=== PATIENT | male | born 1965 | race American Indian/Alaskan Native ===

== ENCOUNTER 2018-11-28 11:42 | Observation (INO) | payer OTHER ==
--- NOTE | 2018-11-28 11:52 | Emergency Department Report ---
Blank Doc - Documentation Documentation: This is a 53-year-old male that presents with dark colored stool with low h/h. Was sent by PCP to r/o GI bleed. This initial assessment/diagnostic orders/clinical plan/treatment(s) is/are subject to change based on patient's health status, clinical progression and re-assessment by fellow clinical providers in the ED. Further treatment and workup at subsequent clinical providers discretion. Patient/guardians urged not to elope from the ED as their condition may be serious if not clinically assessed and managed. Initial orders include: 1- Patient sent to MAIN ED for further evaluation and treatment 2- labs 3- UA
[2018-11-28 12:42] LABS: Basophils # (Auto) 0.1 K/mm3 (0.0-0.1); Basophils % (Auto) 0.8 % (0.0-1.8); Eosinophils # (Auto) 0.1 K/mm3 (0.0-0.4); Eosinophils % (Auto) 2.1 % (0.0-4.3); Hematocrit 25.3 % (35.5-45.6); Hemoglobin 8.3 gm/dl (11.8-15.2); Lymphocytes # (Auto) 1.9 K/mm3 (1.2-5.4); Mean Corpuscular HGB Conc 33 % (32-34); Mean Corpuscular Volume 81 fl (84-94); Monocytes # (Auto) 0.5 K/mm3 (0.0-0.8); Monocytes % (Auto) 7.7 % (0.0-7.3); Platelet Count 289 K/mm3 (140-440); Red Blood Count 3.13 M/mm3 (3.65-5.03); Red Cell Distribution Width 14.4 % (13.2-15.2)
[2018-11-28 13:06] LABS: Alanine Aminotransferase 14 units/L (7-56); Albumin 3.9 g/dL (3.9-5); BUN/Creatinine Ratio 10; Blood Urea Nitrogen 9 mg/dL (9-20); Calcium 8.6 mg/dL (8.4-10.2); Hemolysis Index 5
[2018-11-28] MEDS ORDERED: NACL 0.9% 1000 ML 1,000 ML IV ONE ×2 (14:22→18:00)
--- NOTE | 2018-11-28 14:22 | Emergency Department Report ---
HPI - General Chief Complaint: GI Bleed Time Seen by Provider: 11/28/18 11:51 - HPI HPI: Patient is a 53-year-old male comes to the ER today from his primary care's office with concern for a dropping hemoglobin. According to the patient is hemoglobin last week was 14 today is 8.3. He brought with him paperwork from the primary care's office documenting 8.3 from today. He reports that over the past week his stools have been dark black in appearance. He states that he also noticed that he had some blood clots that were maroon in color. Patient denies hemorrhoids. He states that he has never had bleeding like this in the past. Patient denies any pain in relation to food. He states that he does feel hungry but has not been eating as much as normal. His reports that he just lays around and appears tired. Patient denies any chest pain or shortness of breath. He denies any nausea or vomiting. He denies any fever. He has never had a colonoscopy. Patient denies taking NSAIDs on a routine basis. Past medical history none Past surgical history none home medications none Patient denies alcohol, cigarettes or drug use. 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 Patient's mother is alive with diabetes mellitus: Father is alive and well ED Past Medical Hx - Past Medical History Previous Medical History?: No - Surgical History Past Surgical History?: No - Family History Family history: no significant - Social History Smoking Status: Never Smoker Substance Use Type: None ED Review of Systems ROS: Stated complaint: BLOOD IN STOOL/ABNORMAL BLOOD Other details as noted in HPI Comment: All other systems reviewed and negative Constitutional: malaise Cardiovascular: denies: chest pain Endocrine: denies: excessive sweating Gastrointestinal: as per HPI, melena, hematochezia. denies: abdominal pain, nausea, vomiting, diarrhea, constipation, hematemesis Genitourinary: denies: urgency Musculoskeletal: denies: back pain Skin: denies: lesions Neurological: as per HPI, headache, weakness Psychiatric: denies: anxiety Hematological/Lymphatic: denies: easy bleeding Physical Exam - Physical Exam Vital Signs: Vital Signs 11/28/18 11:51 Temperature 97.9 F Pulse Rate 98 H Respiratory 16 Rate Blood Pressure 142/88 O2 Sat by Pulse 99 Oximetry Physical Exam: WDWN patient in NAD. VS per RN flow sheet. ORTHOSTATICS NOTED. Alert and oriented to person, place and time. NO FOCAL NEURO DEFICIT. S1-S2. No S3 or S4. No systolic or diastolic murmur. No JVD. No pitting edema. Lungs clear to auscultation bilaterally anteriorly and posteriorly. Abdomen soft nontender bowel sounds X 4. NO DYSURIA. NO CVA TENDERNESS Moves all extremities well. Mood and affect appropriate. ED Course Vital Signs 11/28/18 11:51 Temperature 97.9 F Pulse Rate 98 H Respiratory 16 Rate Blood Pressure 142/88 O2 Sat by Pulse 99 Oximetry - Reevaluation(s) Reevaluation #1: 11/28/18 17:56 Dr. Tate has come to see the patient and on exam he shared with Dr. Tejada that he hasn't diet controlled diabetic. And he concurred to Dr. Denny that he takes NSAIDs for his chronic shoulder pain. ED Medical Decision Making - Lab Data Result diagrams: 11/28/18 12:10 11/28/18 12:10 - EKG Data EKG shows normal: sinus rhythm Rate: normal - EKG Data When compared to previous EKG there are: no significant change Interpretation: no acute changes - Medical Decision Making Labs 11/28/18 11/28/18 11/28/18 12:10 12:10 12:10 WBC 6.7 RBC 3.13 L Hgb 8.3 L Hct 25.3 L MCV 81 L MCH 27 L MCHC 33 RDW 14.4 Plt Count 289 Lymph % (Auto) 28.0 [place] % (Auto) 7.7 H Eos % (Auto) 2.1 Baso % (Auto) 0.8 Lymph # 1.9 [place] # 0.5 Eos # 0.1 Baso # 0.1 Seg Neutrophils % 61.4 Seg Neutrophils # 4.1 Sodium 135 L Potassium 4.3 Chloride 97.4 L Carbon Dioxide 23 Anion Gap 19 BUN 9 Creatinine 0.9 Estimated GFR > 60 BUN/Creatinine Ratio 10 Glucose 341 H Calcium 8.6 Total Bilirubin 0.20 AST 12 ALT 14 Alkaline Phosphatase 84 Troponin T Total Protein 7.0 Albumin 3.9 Albumin/Globulin Ratio 1.3 Lipase 59 Blood Type B POSITIVE Antibody Screen Negative 11/28/18 14:47 WBC RBC Hgb Hct MCV MCH MCHC RDW Plt Count Lymph % (Auto) [place] % (Auto) Eos % (Auto) Baso % (Auto) Lymph # [place] # Eos # Baso # Seg Neutrophils % Seg Neutrophils # Sodium Potassium Chloride Carbon Dioxide Anion Gap BUN Creatinine Estimated GFR BUN/Creatinine Ratio Glucose Calcium Total Bilirubin AST ALT Alkaline Phosphatase Troponin T < 0.010 Total Protein Albumin Albumin/Globulin Ratio Lipase Blood Type Antibody Screen Vital Signs 11/28/18 11:51 Temperature 97.9 F Pulse Rate 98 H Respiratory 16 Rate Blood Pressure 142/88 O2 Sat by Pulse 99 Oximetry Rectal exam reveals no hemorrhoids. Stool was positive for occult blood using Hemoccult testing. I've discussed this case and labs with Dr. toro of it sivan Strong. He recommends due to the abrupt hemoglobin drop a 23 hour observation and EGD in the a.m. Dr. Tejada has been notified and has been to bedside. Patient and up and updated on plan of care. - Differential Diagnosis UGI/LGI BLEEDING Critical care attestation.: If time is entered above; I have spent that time in minutes in the direct care of this critically ill patient, excluding procedure time. ED Disposition Clinical Impression: Anemia, GIB (gastrointestinal bleeding) Disposition: DC-09 OP ADMIT IP TO THIS HOSP Is pt being admited?: Yes Does the pt Need Aspirin: No Condition: Stable Time of Disposition: 17:59
[2018-11-28] MEDS ORDERED: PROTONIX IV ONE (14:23)
[2018-11-28] MEDS ORDERED: SODIUM CHLORIDE FLUSH SYRINGE 10 ML IV PRN (18:31)
[2018-11-28] MEDS ORDERED: TYLENOL PO PRN (18:31)
[2018-11-28] MEDS ORDERED: ZOFRAN IV PRN (18:31)
[2018-11-28] MEDS ORDERED: DILAUDID IV PRN (18:31)
[2018-11-28] MEDS ORDERED: NACL 0.9% 1000 ML 1,000 ML ONE (18:49)
--- NOTE | 2018-11-28 18:50 | History and Physical Report ---
History of Present Illness Date of examination: 11/28/18 Date of admission: 11/28/18 17:44 Chief complaint: Hemoglobin dropped from 14 mg to 8 g over 1 week Black stools for 1 week History of present illness: 53-year-old -[place] male comes in for feeling weak. He brings his lab work which shows that his hemoglobin has dropped from 14 1 week ago to 8.3 tod ay. Patient was referred by his primary care physician. Patient has been having dark stools with some blood clots for last 1 week. Patient has been taking ibuprofen 800 mg once a day for his right shoulder pain which is severe. Has been taking ibuprofen for the last 3-4 months. Takes [id number] ibuprofen=--- 4 tablets of 200 mg ibuprofen. Feels lightheaded when he stands. Does not take any BC powders or Goody powders. Past Medical History Diet-controlled diabetes Right shoulder pain Surgical History Past Surgical History?: No Family History Family history: no significant Social History Smoking Status: Never Smoker Substance Use Type: None Review of Systems ROS: Stated complaint: BLOOD IN STOOL/ABNORMAL BLOOD Other details as noted in HPI Comment: All other systems reviewed and negative Constitutional: malaise Cardiovascular: denies: chest pain Endocrine: denies: excessive sweating Gastrointestinal: as per HPI, melena, hematochezia. denies: abdominal pain, nausea, vomiting, diarrhea, constipation, hematemesis Genitourinary: denies: urgency Musculoskeletal: denies: back pain--patient has a right shoulder pain on a recurrent basis Skin: denies: lesions Neurological: as per HPI, headache, weakness Psychiatric: denies: anxiety Hematological/Lymphatic: denies: easy bleeding 14 point review of systems done and otherwise negative Medications and Allergies Allergies Allergy/AdvReac Type Severity Reaction Status Date / Time No Known Allergies Allergy Verified 11/28/18 11:53 Active Meds: Active Medications Acetaminophen (Tylenol) 650 mg PO Q4H PRN PRN Reason: Pain MILD(1-3)/Fever >100.5/DAMON Hydromorphone HCl (Dilaudid) 0.5 mg IV Q3H PRN PRN Reason: Pain , Severe (7-10) Sodium Chloride (Nacl 0.9% 1000 Ml) 1,000 mls @ 125 mls/hr IV BOLUS ONE Stop: 11/29/18 01:59 Sodium Chloride (Nacl 0.9% 1000 Ml) 1,000 mls @ 75 mls/hr IV DIRECT EDUARD Pantoprazole Sodium 80 mg/ (Sodium Chloride) 100 mls @ 10 mls/hr IV DIRECT EDUARD Insulin Human Lispro (Humalog) 0 unit SUB-Q Q6HR EDUARD; Protocol Ondansetron HCl (Zofran) 4 mg IV Q8H PRN PRN Reason: Nausea And Vomiting Sodium Chloride (Sodium Chloride Flush Syringe 10 Ml) 10 ml IV BID EDUARD Sodium Chloride (Sodium Chloride Flush Syringe 10 Ml) 10 ml IV PRN PRN PRN Reason: LINE FLUSH Exam - Constitutional Vitals: Temp Pulse Resp BP Pulse Ox 97.9 F 98 H 16 142/88 99 11/28/18 11:51 11/28/18 11:51 11/28/18 18:02 11/28/18 11:51 11/28/18 11:51 Results - Labs CBC & Chem 7: 11/28/18 12:10 11/28/18 12:10 Labs: Laboratory Last Values WBC 6.7 K/mm3 (4.5-11.0) 11/28/18 12:10 RBC 3.13 M/mm3 (3.65-5.03) L 11/28/18 12:10 Hgb 8.3 gm/dl (11.8-15.2) L 11/28/18 12:10 Hct 25.3 % (35.5-45.6) L 11/28/18 12:10 MCV 81 fl (84-94) L 11/28/18 12:10 MCH 27 pg (28-32) L 11/28/18 12:10 MCHC 33 % (32-34) 11/28/18 12:10 RDW 14.4 % (13.2-15.2) 11/28/18 12:10 Plt Count 289 K/mm3 (140-440) 11/28/18 12:10 Lymph % (Auto) 28.0 % (13.4-35.0) 11/28/18 12:10 [place] % (Auto) 7.7 % (0.0-7.3) H 11/28/18 12:10 Eos % (Auto) 2.1 % (0.0-4.3) 11/28/18 12:10 Baso % (Auto) 0.8 % (0.0-1.8) 11/28/18 12:10 Lymph # 1.9 K/mm3 (1.2-5.4) 11/28/18 12:10 [place] # 0.5 K/mm3 (0.0-0.8) 11/28/18 12:10 Eos # 0.1 K/mm3 (0.0-0.4) 11/28/18 12:10 Baso # 0.1 K/mm3 (0.0-0.1) 11/28/18 12:10 Seg Neutrophils % 61.4 % (40.0-70.0) 11/28/18 12:10 Seg Neutrophils # 4.1 K/mm3 (1.8-7.7) 11/28/18 12:10 Sodium 135 mmol/L (137-145) L 11/28/18 12:10 Potassium 4.3 mmol/L (3.6-5.0) 11/28/18 12:10 Chloride 97.4 mmol/L (98-107) L 11/28/18 12:10 Carbon Dioxide 23 mmol/L (22-30) 11/28/18 12:10 19 mmol/L 11/28/18 12:10 BUN 9 mg/dL (9-20) 11/28/18 12:10 0.9 mg/dL (0.8-1.5) 11/28/18 12:10 Estimated GFR > 60 ml/min 11/28/18 12:10 10 % 11/28/18 12:10 Glucose 341 mg/dL (75-100) H 11/28/18 12:10 Calcium 8.6 mg/dL (8.4-10.2) 11/28/18 12:10 0.20 mg/dL (0.1-1.2) 11/28/18 12:10 AST 12 units/L (5-40) 11/28/18 12:10 ALT 14 units/L (7-56) 11/28/18 12:10 84 units/L (35-129) 11/28/18 12:10 < 0.010 ng/mL (0.00-0.029) 11/28/18 14:47 7.0 g/dL (6.3-8.2) 11/28/18 12:10 3.9 g/dL (3.9-5) 11/28/18 12:10 1.3 % 11/28/18 12:10 59 units/L (13-60) 11/28/18 12:10 Blood Type B POSITIVE 11/28/18 12:10 Antibody Screen Negative 11/28/18 12:10 Short CBC 11/28/18 Range/Units 12:10 WBC 6.7 (4.5-11.0) K/mm3 Hgb 8.3 L (11.8-15.2) gm/dl Hct 25.3 L (35.5-45.6) % Plt Count 289 (140-440) K/mm3 BMP 11/28/18 12:10 Sodium 135 L Potassium 4.3 Chloride 97.4 L Carbon Dioxide 23 BUN 9 Creatinine 0.9 Glucose 341 H Calcium 8.6 Cardiac Enzymes 11/28/18 Range/Units 14:47 Troponin T < 0.010 (0.00-0.029) ng/mL Liver Function 11/28/18 Range/Units 12:10 Total Bilirubin 0.20 (0.1-1.2) mg/dL AST 12 (5-40) units/L ALT 14 (7-56) units/L Alkaline Phosphatase 84 (35-129) units/L Albumin 3.9 (3.9-5) g/dL - Imaging and Cardiology EKG: report reviewed (EKG normal sinus rhythm heart rate of 86/m Night with scarring.) Assessment and Plan Advance Directives: Yes (full code) VTE prophylaxis?: Chemical Plan of care discussed with patient/family: Yes - Patient Problems (1) GIB (gastrointestinal bleeding) Current Visit: Yes Status: Acute Qualifiers: GI bleed type/associated pathology: unspecified gastrointestinal hemorrhage type Qualified Code(s): K92.2 - Gastrointestinal hemorrhage, unspecified Plan to address problem: Probably secondary from ibuprofen Patient has been taking ibuprofen for the last 4-5 months Pantoprazole IV drip started Hemoglobin and hematocrit every 8 hours Transfuse as necessary GI consult requested Keep the patient nothing by mouth Possible endoscopy tomorrow (2) Symptomatic anemia Current Visit: Yes Status: Acute (3) Type 2 diabetes mellitus Current Visit: Yes Status: Chronic Qualifiers: Diabetes mellitus custodial insulin use: without medical terminologist use Plan to address problem: Patient says he has diet-controlled diabetes Not taking any medications We'll check his hemoglobin A1c and Accu-Cheks before meals and at bedtime Moderate dose sliding scale coverage Initiate hypoglycemics if necessary (4) Right shoulder pain Current Visit: Yes Status: Chronic Qualifiers: Chronicity: chronic Qualified Code(s): M25.511 - Pain in right shoulder; G8 9.29 - Other chronic pain Plan to address problem: We will get x-rays of the right shoulder Refer to Dr. Perez as outpatient (5) DVT prophylaxis Current Visit: Yes Status: Acute Plan to address problem: On SCDs and on Protonix drip for GI prophylaxis
[2018-11-28] MEDS ORDERED: HumaLOG SUB-Q ONE (19:22)
[2018-11-28] MEDS: HumaLOG SUB-Q SCH ×2 (19:24→23:57)
--- NOTE | 2018-11-28 19:32 | Gastroenterology Consultation ---
History of Present Illness - Reason for Consult Consult date: 11/28/18 Melena Requesting physician: JIGNESH NOLEN - History of Present Illness The patient is a 53 yo male admitted with dark stools for the last 7 days (intermittent, with occasional maroon clot). His PCP is CHANA, and his hgb was 14 last week, but was 8 this week in the office, and he was sent to the ER. He has no abdominal pain, N/V, weight loss, chest pain or SOB. He does have mild pre-syncope. In the ER tonight, there was brown stool on exam, but he had clots earlier today by report. He has no hx of GI bleeding, and has had no prior EGD or colonoscopy. He has no family hx of bleeding disorders or GI luminal cancer. He does take ibuprofen on a daily basis (tendonitis and shoulder arthritis) without GI prophylaxis. He has had no prior abdominal surgery. Past History Past Medical History: other (Arthritis/tendonitis) Past Surgical History: No surgical history Social history: . denies: smoking, alcohol abuse Family history: no significant family history Medications and Allergies Allergies Allergy/AdvReac Type Severity Reaction Status Date / Time No Known Allergies Allergy Verified 11/28/18 11:53 Active Meds: Active Medications Acetaminophen (Tylenol) 650 mg PO Q4H PRN PRN Reason: Pain MILD(1-3)/Fever >100.5/DAMON Hydromorphone HCl (Dilaudid) 0.5 mg IV Q3H PRN PRN Reason: Pain , Severe (7-10) Sodium Chloride (Nacl 0.9% 1000 Ml) 1,000 mls @ 125 mls/hr IV BOLUS ONE Stop: 11/29/18 01:59 Last Admin: 11/28/18 18:52 Dose: 125 mls/hr Documented by: Sodium Chloride (Nacl 0.9% 1000 Ml) 1,000 mls @ 75 mls/hr IV DIRECT EDUARD Pantoprazole Sodium 80 mg/ (Sodium Chloride) 100 mls @ 10 mls/hr IV DIRECT EDUARD Insulin Human Lispro (Humalog) 0 unit SUB-Q Q6HR EDUARD; Protocol Last Admin: 11/28/18 19:24 Dose: 8 unit Documented by: Ondansetron HCl (Zofran) 4 mg IV Q8H PRN PRN Reason: Nausea And Vomiting Sodium Chloride (Sodium Chloride Flush Syringe 10 Ml) 10 ml IV BID EDUARD Sodium Chloride (Sodium Chloride Flush Syringe 10 Ml) 10 ml IV PRN PRN PRN Reason: LINE FLUSH I HAVE REVIEWED AND RECONCILED HOME MEDICATIONS Review of Systems - Review of Systems All systems: negative (as noted in the HPI.) Exam - Constitutional Vital Signs: Temp Pulse Resp BP Pulse Ox 97.9 F 98 H 16 142/88 99 11/28/18 11:51 11/28/18 11:51 11/28/18 18:02 11/28/18 11:51 11/28/18 11:51 General appearance: no acute distress - EENT Eyes: PERRL, EOM intact ENT: hearing intact, clear oral mucosa, no thrush - Neck Neck: supple, normal ROM - Respiratory Respiratory effort: normal Respiratory: bilateral: CTA - Cardiovascular Rhythm: regular Heart Sounds: Present: S1 & S2 Extremities: no ischemia, No edema - Gastrointestinal General gastrointestinal: Present: soft, non-tender, non-distended - Integumentary Integumentary: Present: clear ((Tattoos)), warm, dry - Neurologic Neurological: alert and oriented x3 - Labs CBC & Chem 7: 11/28/18 12:10 11/28/18 12:10 Lab Results: Laboratory Results - last 24 hr 11/28/18 11/28/18 11/28/18 12:10 12:10 12:10 WBC 6.7 RBC 3.13 L Hgb 8.3 L Hct 25.3 L MCV 81 L MCH 27 L MCHC 33 RDW 14.4 Plt Count 289 Lymph % (Auto) 28.0 [place] % (Auto) 7.7 H Eos % (Auto) 2.1 Baso % (Auto) 0.8 Lymph # 1.9 [place] # 0.5 Eos # 0.1 Baso # 0.1 Seg Neutrophils % 61.4 Seg Neutrophils # 4.1 Sodium 135 L Potassium 4.3 Chloride 97.4 L Carbon Dioxide 23 Anion Gap 19 BUN 9 Creatinine 0.9 Estimated GFR > 60 BUN/Creatinine Ratio 10 Glucose 341 H Calcium 8.6 Total Bilirubin 0.20 AST 12 ALT 14 Alkaline Phosphatase 84 Troponin T Total Protein 7.0 Albumin 3.9 Albumin/Globulin Ratio 1.3 Lipase 59 Blood Type B POSITIVE Antibody Screen Negative 11/28/18 14:47 WBC RBC Hgb Hct MCV MCH MCHC RDW Plt Count Lymph % (Auto) [place] % (Auto) Eos % (Auto) Baso % (Auto) Lymph # [place] # Eos # Baso # Seg Neutrophils % Seg Neutrophils # Sodium Potassium Chloride Carbon Dioxide Anion Gap BUN Creatinine Estimated GFR BUN/Creatinine Ratio Glucose Calcium Total Bilirubin AST ALT Alkaline Phosphatase Troponin T < 0.010 Total Protein Albumin Albumin/Globulin Ratio Lipase Blood Type Antibody Screen Assessment and Plan - Patient Problems (1) Melena Current Visit: Yes Status: Acute Plan to address problem: - Given chronic NSAID use, likely PUD. - Currently, brown stool in ER, and BUN WNL; no indication for emergent EGD. - Will start IV PPI, and plan EGD tomorrow. - NPO after midnight, and will hold NSAIDs.
[2018-11-28] MEDS: NACL 0.9% 1000 ML 1,000 ML IV SCH (20:00)
[2018-11-28 20:10] LABS: Hematocrit 23.5 % (35.5-45.6)
[2018-11-28 20:44] LABS: Bilirubin,Urine NEG (Negative); Blood,Urine NEG (Negative); Color,Urine Straw (Yellow); Protein,Urine <15 mg/dL mg/dL (Negative); Urobilinogen,Urine < 2.0 mg/dL (<2.0); WBC,Urine < 1.0 /HPF (0.0-6.0)
[2018-11-28 20:47] LABS: RBC,Urine < 1.0 /HPF (0.0-6.0)
[2018-11-28] MEDS: SODIUM CHLORIDE FLUSH SYRINGE 10 ML IV SCH (23:07)
[2018-11-28] MEDS: PROTONIX 80 MG in NACL 0.9% 100 ML IV SCH (23:53)
[2018-11-29] MEDS ORDERED: PROTONIX IV SCH (06:00)
[2018-11-29] MEDS: NACL 0.9% 1000 ML 1,000 ML IV SCH (07:09)
[2018-11-29] MEDS: HumaLOG SUB-Q SCH ×3 (07:18→18:33)
[2018-11-29] MEDS: PROTONIX 80 MG in NACL 0.9% 100 ML IV SCH ×2 (07:49→13:40)
[2018-11-29 08:16] LABS: Basophils % (Auto) 0.6 % (0.0-1.8); Eosinophils # (Auto) 0.1 K/mm3 (0.0-0.4); Eosinophils % (Auto) 2.8 % (0.0-4.3); Hematocrit 21.8 % (35.5-45.6); Hemoglobin 7.2 gm/dl (11.8-15.2); Lymphocytes # (Auto) 1.7 K/mm3 (1.2-5.4); Lymphocytes % (Auto) 34.6 % (13.4-35.0); Mean Corpuscular HGB Conc 33 % (32-34); Mean Corpuscular Volume 80 fl (84-94); Monocytes # (Auto) 0.4 K/mm3 (0.0-0.8); Monocytes % (Auto) 7.7 % (0.0-7.3); Platelet Count 249 K/mm3 (140-440); Red Blood Count 2.72 M/mm3 (3.65-5.03); Red Cell Distribution Width 14.9 % (13.2-15.2)
[2018-11-29 08:18] LABS: Alanine Aminotransferase 12 units/L (7-56); Albumin 3.2 g/dL (3.9-5); BUN/Creatinine Ratio 7; Blood Urea Nitrogen 5 mg/dL (9-20); Calcium 7.9 mg/dL (8.4-10.2); Hemolysis Index 13
--- NOTE | 2018-11-29 11:23 | Progress Note ---
Assessment and Plan Assessment and plan: GI bleed/melena. Etiology likely secondary to NSAID use/PUD. GI plans for EGD today. Continue IV PPI. Continue to hold NSAIDs. Symptomatic anemia. Transfuse for hemoglobin less than 7. Type 2 diabetes mellitus. F/U hemoglobin A1c and Accu-Cheks before meals and at bedtime, continue SSRI History Interval history: The patient is a 53 yo male admitted with dark stools for the last 7 days (intermittent, with occasional maroon clot). His PCP is CHANA, and his hgb was 14 last week, but was 8 this week in the office, and he was sent to the ER. He has no abdominal pain, N/V, weight loss, chest pain or SOB. He does have mild pre-syncope. On admission, there was brown stool on exam, but he had clots earlier prior to admission per report. He has no hx of GI bleeding, and has had no prior EGD or colonoscopy. He has no family hx of bleeding disorders or GI luminal cancer. He does take ibuprofen on a daily basis (tendonitis and shoulder arthritis) without GI prophylaxis. He has had no prior abdominal surgery. No new issues overnight. Hospitalist Physical - Constitutional Vitals: Temp Pulse Resp BP Pulse Ox 98.5 F 86 18 108/62 100 11/29/18 05:13 11/29/18 05:13 11/29/18 05:13 11/29/18 05:13 11/29/18 05:13 General appearance: Present: no acute distress, well-nourished - EENT Eyes: Present: PERRL, EOM intact ENT: hearing intact, clear oral mucosa, dentition normal - Neck Neck: Present: supple, normal ROM - Respiratory Respiratory effort: normal Respiratory: bilateral: CTA - Cardiovascular Rhythm: regular Heart Sounds: Present: S1 & S2. Absent: gallop, rub - Extremities Extremities: no ischemia, No edema, Full ROM - Abdominal General gastrointestinal: soft, non-tender, non-distended, normal bowel sounds - Integumentary Integumentary: Present: clear, warm, dry - Neurologic Neurologic: CNII-XII intact, moves all extremities Results - Labs CBC & Chem 7: 11/29/18 07:04 11/29/18 07:04 Labs: Laboratory Last Values WBC 5.0 K/mm3 (4.5-11.0) 11/29/18 07:04 RBC 2.72 M/mm3 (3.65-5.03) L 11/29/18 07:04 Hgb 7.2 gm/dl (11.8-15.2) L 11/29/18 07:04 Hct 21.8 % (35.5-45.6) L 11/29/18 07:04 MCV 80 fl (84-94) L 11/29/18 07:04 MCH 27 pg (28-32) L 11/29/18 07:04 MCHC 33 % (32-34) 11/29/18 07:04 RDW 14.9 % (13.2-15.2) 11/29/18 07:04 Plt Count 249 K/mm3 (140-440) 11/29/18 07:04 Lymph % (Auto) 34.6 % (13.4-35.0) 11/29/18 07:04 [place] % (Auto) 7.7 % (0.0-7.3) H 11/29/18 07:04 Eos % (Auto) 2.8 % (0.0-4.3) 11/29/18 07:04 Baso % (Auto) 0.6 % (0.0-1.8) 11/29/18 07:04 Lymph # 1.7 K/mm3 (1.2-5.4) 11/29/18 07:04 [place] # 0.4 K/mm3 (0.0-0.8) 11/29/18 07:04 Eos # 0.1 K/mm3 (0.0-0.4) 11/29/18 07:04 Baso # 0.0 K/mm3 (0.0-0.1) 11/29/18 07:04 Seg Neutrophils % 54.3 % (40.0-70.0) 11/29/18 07:04 Seg Neutrophils # 2.7 K/mm3 (1.8-7.7) 11/29/18 07:04 Sodium 137 mmol/L (137-145) 11/29/18 07:04 Potassium 3.9 mmol/L (3.6-5.0) 11/29/18 07:04 Chloride 104.2 mmol/L (98-107) 11/29/18 07:04 Carbon Dioxide 24 mmol/L (22-30) 11/29/18 07:04 13 mmol/L 11/29/18 07:04 BUN 5 mg/dL (9-20) L 11/29/18 07:04 0.7 mg/dL (0.8-1.5) L 11/29/18 07:04 Estimated GFR > 60 ml/min 11/29/18 07:04 7 % 11/29/18 07:04 Glucose 210 mg/dL (75-100) H 11/29/18 07:04 POC Glucose 208 (70-105) H 11/29/18 06:52 Calcium 7.9 mg/dL (8.4-10.2) L 11/29/18 07:04 0.20 mg/dL (0.1-1.2) 11/29/18 07:04 AST 12 units/L (5-40) 11/29/18 07:04 ALT 12 units/L (7-56) 11/29/18 07:04 69 units/L (35-129) 11/29/18 07:04 < 0.010 ng/mL (0.00-0.029) 11/28/18 14:47 6.2 g/dL (6.3-8.2) L 11/29/18 07:04 3.2 g/dL (3.9-5) L 11/29/18 07:04 1.1 % 11/29/18 07:04 59 units/L (13-60) 11/28/18 12:10 Straw (Yellow) 11/28/18 20:11 Clear (Clear) 11/28/18 20:11 5.0 (5.0-7.0) 11/28/18 20:11 Ur Specific [place] 1.018 (1.003-1.030) 11/28/18 20:11 <15 mg/dl mg/dL (Negative) 11/28/18 20:11 >=500 mg/dL (Negative) 11/28/18 20:11 Neg mg/dL (Negative) 11/28/18 20:11 Neg (Negative) 11/28/18 20:11 Neg (Negative) 11/28/18 20:11 Neg (Negative) 11/28/18 20:11 < 2.0 mg/dL (<2.0) 11/28/18 20:11 Ur Leukocyte Esterase Neg (Negative) 11/28/18 20:11 < 1.0 /HPF (0.0-6.0) 11/28/18 20:11 < 1.0 /HPF (0.0-6.0) 11/28/18 20:11 Blood Type B POSITIVE 11/28/18 12:10 Antibody Screen Negative 11/28/18 12:10 Active Medications - Current Medications Current Medications: Generic Name Dose Route Start Last Admin Trade Name Freq PRN Reason Stop Dose Admin Acetaminophen 650 mg 11/28/18 18:31 Tylenol PO Q4H PRN Pain MILD(1-3)/Fever >100.5/DAMON Hydromorphone HCl 0.5 mg 11/28/18 18:31 Dilaudid IV Q3H PRN Pain , Severe (7-10) Sodium Chloride 1,000 mls @ 75 mls/hr 11/28/18 19:00 11/29/18 07:09 Nacl 0.9% 1000 Ml IV 75 mls/hr DIRECT EDUARD Administration Pantoprazole Sodium 80 mg/ 100 mls @ 10 mls/hr 11/28/18 19:00 11/29/18 07:49 Sodium Chloride IV 8 mg/hr DIRECT EDUARD 10 mls/hr Administration 8 MG/HR Insulin Human Lispro 0 unit 11/28/18 19:00 11/29/18 07:18 Humalog SUB-Q Not Given Q6HR EDUARD Protocol Ondansetron HCl 4 mg 11/28/18 18:31 Zofran IV Q8H PRN Nausea And Vomiting Sodium Chloride 10 ml 11/28/18 22:00 11/28/18 23:07 Sodium Chloride Flush Syringe 10 Ml IV 10 ml BID EDUARD Administration Sodium Chloride 10 ml 11/28/18 18:31 Sodium Chloride Flush Syringe 10 Ml IV PRN PRN LINE FLUSH
[2018-11-29 12:29] LABS: Hemoglobin 7.4 gm/dl (11.8-15.2)
[2018-11-29] MEDS ORDERED: VERSED ONE (16:38)
[2018-11-29] MEDS ORDERED: DIPRIVAN 10 MG/ML IV ONE (16:38)
--- NOTE | 2018-11-29 16:38 | Anesthesia Day of Surgery ---
Anesthesia Day of Surgery - Day of Surgery Patient Examined: Yes Patient H&P Reviewed: Yes Patient is NPO: Yes Beta Blockers: No
--- NOTE | 2018-11-29 16:39 | Anesthesia Consultation ---
Anesthesia Consult and Med Hx Date of service: 11/29/18 - Airway Anesthetic Teeth Evaluation: Edentulous ROM Head & Neck: Adequate Mental/Hyoid Distance: Adequate Mallampati Class: Class III Intubation Access Assessment: Good - Pulmonary Exam CTA: Yes - Cardiac Exam Cardiac Exam: No Murmur - Pre-Operative Health Status ASA Pre-Surgery Classification: ASA2 Proposed Anesthetic Plan: MAC - Pulmonary Hx Asthma: No COPD: No Hx Pneumonia: No - Endocrine Hx End Stage Renal Disease: No Hx Non-Insulin Dependent Diabetes: Yes
--- NOTE | 2018-11-29 16:52 | Post Operative Note ---
Pre-op diagnosis: Melena Post-op diagnosis: other (Pyloric channel ulcer, Marium esophagitis) Findings: 1. 8 mm pyloric channel ulcer with white base, no stigmata of bleeding. 2. Antrum normal, biopsied. 3. White specks in distal esophagus, biopsied. 4. O/w normal EGD. Procedure: EGD with biopsy Anesthesia: MAC Surgeon: CLAUDE VASQUES Estimated blood loss: minimal Pathology: list (1. Antrum, 2. Esophagus) Specimen disposition: to lab Condition: stable Disposition: floor (Adv diet, and if stable H/H, D/C to home in AM on PPI, with outpatient follow up.)
[2018-11-29] MEDS ORDERED: NACL 0.9% 1000 ML 1,000 ML IV SCH (17:00)
--- NOTE | 2018-11-29 18:13 | Operative Report ---
PROCEDURE: Upper endoscopy with biopsy. PREOPERATIVE DIAGNOSES: Melena and anemia. POSTOPERATIVE DIAGNOSES: Pyloric channel ulcer and Marium esophagitis. SEDATION: MAC by Anesthesia. HISTORY: The patient is a 53-year-old man who was taking ibuprofen 4 times a week. He presented with history of melena in the recent past, and anemia. Procedure, indications, risks, and benefits were explained and consent was obtained. The patient was placed in left lateral decubitus position and sedated. Olympus video upper endoscope was passed through the mouth and oropharynx into the descending duodenum. Scope was then gradually withdrawn with close inspection of mucosa. FINDINGS: 1. Distal esophagus showed a few white speckled plaques that were small noted throughout. These were biopsied. Z-line was at 40 cm. 2. Normal appearing gastric antrum, fundus, body, and cardia. Antral biopsies were obtained. 3. 8 mm pyloric channel ulcer with white fibrinous base and no stigmata of bleeding. 4. Normal appearing duodenal bulb and duodenum. The patient tolerated the procedure well without immediate complication. IMPRESSION: 1. Pyloric channel ulcer -- likely source of bleeding. 2. Normal stomach otherwise -- antrum, biopsied. 3. Distal esophageal whitish plaques consistent with Marium. Biopsied. The patient is asymptomatic. PLAN: 1. Follow up biopsies. 2. Chronic proton pump inhibitors. 3. Follow up in the office to further address as an outpatient in 3-4 weeks. 4. Avoid NSAIDs. JOB# [id number] HRC/NTS
[2018-11-29] MEDS: SODIUM CHLORIDE FLUSH SYRINGE 10 ML IV SCH (22:00)
[2018-11-29] MEDS: PROTONIX PO SCH (22:56)
[2018-11-30] MEDS: HumaLOG SUB-Q SCH ×3 (00:20→12:44)
[2018-11-30] MEDS: SODIUM CHLORIDE FLUSH SYRINGE 10 ML IV SCH ×2 (02:54→09:50)
--- NOTE | 2018-11-30 08:14 | Discharge Summary ---
Providers - Providers Date of Admission: 11/28/18 17:44 Date of discharge: 11/30/18 Attending physician: LORENE SULTANA 11/28/18 18:31 Consult to Physician [CONS] Routine Comment: Consulting Provider: CLAUDE VASQUES Physician Instructions: Reason For Exam: GI Bleed Primary care physician: MIC LEE Hospitalization Reason for admission: anemia/melena Condition: Stable Hospital course: The patient is a 53 yo male admitted with dark stools for the last 7 days (intermittent, with occasional maroon clot). His PCP is CHANA, and his hgb was 14 last week, but was 8 this week in the office, and he was sent to the ER. He had no abdominal pain, N/V, weight loss, chest pain or SOB. He did report mild pre-syncope. 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 He has no hx of GI bleeding, and has had no prior EGD or colonoscopy. He has no family hx of bleeding disorders or GI luminal cancer. He does take ibuprofen on a daily basis (tendonitis and shoulder arthritis) without GI prophylaxis. He has had no prior abdominal surgery. The patient was seen by GI in consultation and underwent upper endoscopy that revealed Pyloric channel ulcer, Marium esophagitis. Biopsies of the stomach and distal esophagus were taken which can be followed up as an outpatient. GI recommended patient could be discharged if H&H is stable and follow-up in their office. Dedicated discharge time 32 minutes. Disposition: -01 TO HOME OR SELFCARE Time spent for discharge: 32 - Discharge Diagnoses (1) Marium esophagitis Status: Acute (2) PUD (peptic ulcer disease) Status: Acute (3) Anemia Status: Acute (4) GIB (gastrointestinal bleeding) Status: Acute Qualifiers: GI bleed type/associated pathology: unspecified gastrointestinal hemorrhage type Qualified Code(s): K92.2 - Gastrointestinal hemorrhage, unspecified (5) Melena Status: Acute (6) Symptomatic anemia Status: Acute (7) Type 2 diabetes mellitus Status: Chronic Qualifiers: Diabetes mellitus skilled nursing insulin use: without skilled nursing use Core Measure Documentation - Palliative Care Palliative Care/ Comfort Measures: Not Applicable - Core Measures Any of the following diagnoses?: none Exam - Constitutional Vitals: Temp Pulse Resp BP Pulse Ox 98.2 F 80 17 101/54 98 11/30/18 05:57 11/30/18 05:57 11/30/18 05:57 11/30/18 05:57 11/30/18 05:57 General appearance: Present: no acute distress, well-nourished - EENT Eyes: Present: PERRL ENT: hearing intact, clear oral mucosa - Neck Neck: Present: supple, normal ROM - Respiratory Respiratory effort: normal Respiratory: bilateral: CTA - Cardiovascular Heart Sounds: Present: S1 & S2. Absent: rub, click - Extremities Extremities: pulses symmetrical, No edema Peripheral Pulses: within normal limits - Abdominal General gastrointestinal: Present: soft, non-tender, non-distended, normal bowel sounds Male genitourinary: Present: normal - Integumentary Integumentary: Present: clear, warm, dry - Musculoskeletal Musculoskeletal: gait normal, strength equal bilaterally - Psychiatric Psychiatric: appropriate mood/affect, intact judgment & insight - Neurologic Neurologic: CNII-XII intact, moves all extremities Plan Activity: advance as tolerated Weight Bearing Status: Weight Bear as Tolerated Diet: diabetic Follow up with: MIC LEE MD [Primary Care Provider] - 7 Days SAGE ART MD [Staff Physician] - 7 Days Prescriptions: Fluconazole [Diflucan TAB] 200 mg PO QDAY #14 tablet Pantoprazole [Protonix TAB] 40 mg PO BID #60 tablet
[2018-11-30 09:01] LABS: Eosinophils # (Auto) 0.1 K/mm3 (0.0-0.4); Eosinophils % (Auto) 2.6 % (0.0-4.3); Hematocrit 23.2 % (35.5-45.6); Hemoglobin 7.7 gm/dl (11.8-15.2); Lymphocytes # (Auto) 1.5 K/mm3 (1.2-5.4); Lymphocytes % (Auto) 31.7 % (13.4-35.0); Mean Corpuscular HGB Conc 33 % (32-34); Mean Corpuscular Volume 80 fl (84-94); Monocytes # (Auto) 0.4 K/mm3 (0.0-0.8); Monocytes % (Auto) 7.9 % (0.0-7.3); Platelet Count 261 K/mm3 (140-440); Red Blood Count 2.91 M/mm3 (3.65-5.03); Red Cell Distribution Width 14.9 % (13.2-15.2)
[2018-11-30] MEDS: PROTONIX PO SCH (09:49)
--- NOTE | 2018-11-30 11:11 | Gastroenterology Progress Note ---
Assessment and Plan 1.melena -H/H 7.7/23.2-stable -continue to monitor H/H and transfuse as needed -s/p EGD yesterday that revealed a 8mm pyloric channel ulcer with white base (no stigmata of bleeding) and white specks in distal esophagus -bx results pending-f/u in clinic -clinically, patient is stable w/o active signs of bleeding. Denies abd pain or N/V. Tolerating liquids. -okay to advance diet -continue PPI BID -avoid NSAIDs -patient okay to be d/c per GI standpoint on PPI BID with f/u in clinic in ~2 weeks -will sign off, please call if needed Subjective Date of service: 11/30/18 Principal diagnosis: GI bleed Interval history: No acute distress or active signs of bleeding overnight or this am. Denies abd pain or N/V. Tolerating clears. Objective - Constitutional Vitals: Temp Pulse Resp BP Pulse Ox 98.2 F 80 17 101/54 98 11/30/18 05:57 11/30/18 05:57 11/30/18 05:57 11/30/18 05:57 11/30/18 05:57 General appearance: no acute distress - Respiratory Respiratory effort: normal Respiratory: bilateral: CTA - Cardiovascular Rhythm: regular - Gastrointestinal General gastrointestinal: Present: soft, non-tender, non-distended, normal bowel sounds - Neurologic Neurological: alert and oriented x3 - Labs CBC & Chem 7: 11/30/18 08:52 11/29/18 07:04 Labs: Laboratory Results - last 24 hr 11/28/18 11/29/18 11/29/18 19:21 11:43 12:55 WBC RBC Hgb 7.4 L Hct 22.0 L MCV MCH MCHC RDW Plt Count Lymph % (Auto) Ralls % (Auto) Eos % (Auto) Baso % (Auto) Lymph # Ralls # Eos # Baso # Seg Neutrophils % Seg Neutrophils # POC Glucose 368 H 201 H 11/29/18 11/30/18 11/30/18 18:17 00:14 06:00 WBC RBC Hgb Hct MCV MCH MCHC RDW Plt Count Lymph % (Auto) Ralls % (Auto) Eos % (Auto) Baso % (Auto) Lymph # Ralls # Eos # Baso # Seg Neutrophils % Seg Neutrophils # POC Glucose 205 H 141 H 166 H 11/30/18 08:52 WBC 4.9 RBC 2.91 L Hgb 7.7 L Hct 23.2 L MCV 80 L MCH 27 L MCHC 33 RDW 14.9 Plt Count 261 Lymph % (Auto) 31.7 Ralls % (Auto) 7.9 H Eos % (Auto) 2.6 Baso % (Auto) 1.0 Lymph # 1.5 Ralls # 0.4 Eos # 0.1 Baso # 0.0 Seg Neutrophils % 56.8 Seg Neutrophils # 2.8 POC Glucose
[2018-11-30 12:31] VITALS: BP 135/85
== END 2018-11-30 12:43 | disposition home or self-care (01) ==
LOC: ED 11:42 → 3A 17:44
PROVIDERS: ADMIT Internal Medicine; ATTEND Hospitalist
DX: K92.1 Melena (principal); D64.9 Anemia, unspecified; R42 Dizziness and giddiness; E11.9 Type 2 diabetes mellitus without complications; M25.511 Pain in right shoulder; B37.81 Candidal esophagitis; K27.9 Peptic ulcer, site unspecified, unspecified as acute or chronic, without hemorrhage or perforation; Z79.899 Other long term (current) drug therapy
CPT/HCPCS: 36415; 43239; 80053; 81001; 82962; 83690; 84484; 85014; 85018; 85025; 86850; 86900; 86901; 88305; 88312; 88342; 93005; 93010; 96361; 96365; 96366; 96372; 96376; 99284; C9113; G0378; J2250; J2704; J7030; J1815